=== PATIENT | female | born 1980 | race Hispanic/Latino ===

== ENCOUNTER 2018-02-23 11:49 | Emergency (ER) | payer BC ==
[2018-02-23] MEDS ORDERED: Famotidine 20 MG TAB ONE (12:29)
== END 2018-02-23 12:30 | disposition home or self-care (01) ==
LOC: SCSER 11:49
DX: S80.862A Insect bite (nonvenomous), left lower leg, initial encounter (principal); S80.861A Insect bite (nonvenomous), right lower leg, initial encounter; T78.40XA Allergy, unspecified, initial encounter; F17.210 Nicotine dependence, cigarettes, uncomplicated; F32.9 Major depressive disorder, single episode, unspecified; W57.XXXA Bitten or stung by nonvenomous insect and other nonvenomous arthropods, initial encounter
CPT/HCPCS: 99283